=== PATIENT | female | born 1965 | race Caucasian/White ===

== ENCOUNTER 2016-12-08 23:44 | Emergency (ER) | payer OTHER ==
[2016-12-09 00:41] LABS: BASOPHIL % 0.9 % (0-2); RED CELL DISTRIBUTION WIDTH 14.3 % (11.5-14.5)
[2016-12-09 00:50] LABS: PLATELET COUNT 401 x10^3mcL (130-400)
[2016-12-09 01:14] VITALS: BP 150/93
== END 2016-12-09 01:14 | disposition home or self-care (01) ==
LOC: ED 23:44
PROVIDERS: Emergency Medicine
DX: N93.8 Other specified abnormal uterine and vaginal bleeding (principal); D64.9 Anemia, unspecified; Z88.0 Allergy status to penicillin
CPT/HCPCS: 36415

== ENCOUNTER 2017-03-08 22:03 | Emergency (ER) | payer OTHER ==
[2017-03-08 22:49] LABS: BASOPHIL % 0.7 % (0-2); PLATELET COUNT 316 x10^3mcL (130-400)
[2017-03-08 22:50] LABS: RED CELL DISTRIBUTION WIDTH 15.2 % (11.5-14.5)
[2017-03-08 23:06] LABS: CALCIUM 8.3 mg/dL (8.5-10.1); CARBON DIOXIDE 25.2 mmol/L (21-32); CHLORIDE SERUM 106 mmol/L (98-107); GFR1 > 60 mL/min; GLUCOSE SERUM 156 mg/dL (74-106); POTASSIUM SERUM 3.4 mmol/L (3.5-5.1); SODIUM SERUM 138 mmol/L (136-145)
[2017-03-08 23:10] LABS: ALKALINE PHOSPHATASE 152 U/L (46-116); ALT/SGPT 86 U/L (14-59); AST/SGOT 46 U/L (15-37); BILIRUBIN TOTAL 0.21 mg/dL (0.20-1.00); TOTAL PROTEIN, SERUM 7.4 g/dL (6.4-8.2)
[2017-03-08 23:15] LABS: ALBUMIN 3.3 g/dL (3.4-5.0)
[2017-03-09 01:03] VITALS: BP 130/90
== END 2017-03-09 01:04 | disposition home or self-care (01) ==
LOC: ED 22:03
PROVIDERS: Emergency Medicine
DX: S29.011A Strain of muscle and tendon of front wall of thorax, initial encounter (principal); M94.0 Chondrocostal junction syndrome [Tietze]; I10 Essential (primary) hypertension; Z79.899 Other long term (current) drug therapy; X58.XXXA Exposure to other specified factors, initial encounter; Y93.89 Activity, other specified; Y99.8 Other external cause status; Y92.89 Other specified places as the place of occurrence of the external cause
CPT/HCPCS: 36415; J1885; Q0092